=== PATIENT | female | born 1955 | race Caucasian/White ===

== ENCOUNTER 2021-12-13 19:57 | Emergency (ER) | payer MEDICARE ==
[2021-12-13 22:39] LABS: HEMOGLOBIN 14.7 gm/dl (12.3-15.3); RED BLOOD COUNT 4.43 M/UL (4.00-5.10); WHITE BLOOD COUNT 9.1 K/UL (4.5-11.0)
[2021-12-13 23:02] LABS: BUN/CREATININE RATIO 16 (0-10)
== END 2021-12-14 03:31 | disposition home or self-care (01) ==
LOC: ER1 19:57
PROVIDERS: Physician Assistant
DX: I10 Essential (primary) hypertension (principal)
CPT/HCPCS: 70450; 71045; 80053; 81001; 82550; 82553; 84484; 85025; 99284

== ENCOUNTER 2021-12-17 00:48 | Emergency (ER) | payer MEDICARE ==
[2021-12-17 01:32] LABS: HEMOGLOBIN 14.6 gm/dl (12.3-15.3); RED BLOOD COUNT 4.48 M/UL (4.00-5.10); WHITE BLOOD COUNT 8.2 K/UL (4.5-11.0)
[2021-12-17 01:45] LABS: BUN/CREATININE RATIO 17 (0-10)
== END 2021-12-17 04:42 | disposition home or self-care (01) ==
LOC: ER1 00:48
PROVIDERS: Emergency Medicine
DX: M25.512 Pain in left shoulder (principal); R06.02 Shortness of breath
CPT/HCPCS: 71045; 80048; 83880; 84484; 85025; 93005; 99285